=== PATIENT | female | born 1985 | race Caucasian/White ===

== ENCOUNTER → 2019-08-19 11:55 | Outpatient (CLI) | payer OTHER, SELFPAY | DX: Z23 Encounter for immunization (principal) | CPT/HCPCS: 90471; 90686 ==

== ENCOUNTER → 2020-08-12 15:06 | Outpatient (CLI) | payer OTHER, SELFPAY | PROVIDERS: Referring Provider Internal Medicine; Visit Provider Internal Medicine | DX: Z23 Encounter for immunization (principal) | CPT/HCPCS: 90471; 90686 ==

== ENCOUNTER → 2021-02-10 08:46 | Outpatient (CLI) | payer OTHER, SELFPAY ==
[2021-02-10] MEDS: COVID-19 VACC, Ad26(JANSSEN)/PF 0.5 ML IM (08:57)
== END ==
PROVIDERS: Visit Provider Internal Medicine
DX: Z23 Encounter for immunization (principal)
CPT/HCPCS: 0031A; 91303